=== PATIENT | male | born 1990 | race Caucasian/White ===

== ENCOUNTER 2016-07-21 17:15 | Emergency (ER) | payer SELFPAY ==
[~2016-07-21] VITALS: Ht 170.2 cm; Wt 81.6 kg
[2016-07-21 17:31] VITALS: BP 136/97
--- NOTE | 2016-07-21 18:31 | NUR ---
PATIENT CALLED FROM [facility] FOR X RAY 3 TIMES NO ANSWER, PATIENT IS LWBS.
--- NOTE | 2016-07-21 18:42 | NUR ---
PATIENT LEFT WITHOUT BEING SEEN BY DR. WARD. NO FURTHER CARE PROVIDED FOR PATIENT.
== END 2016-07-21 18:31 | disposition left against medical advice (07) ==
LOC: MED 17:15
DX: M79.601 Pain in right arm (principal); Z53.21 Procedure and treatment not carried out due to patient leaving prior to being seen by health care provider